=== PATIENT | male | born 1965 | race Caucasian/White ===

== ENCOUNTER 2023-12-12 18:43 | Observation (INO) | payer MEDICARE, MEDICAID, SELFPAY ==
--- NOTE | ~2023-12-12 | XR_ITS ---
XR ribs LT 2V w CXR 2V Ordering provider: Mariana Pinto PA-C History: . rib/chest pain, fall . Comparison: None. FINDINGS: BONES: Fracture of the left fourth rib is noted. No other fractures seen. MEDIASTINUM: The cardiac silhouette is not enlarged. LUNGS: No infiltrates, effusions or pneumothorax. OTHER: No free air under the diaphragm. IMPRESSION: 1. Fracture left fourth rib. 2. No acute cardiopulmonary findings. Reviewed, dictated and finalized at location A.
--- NOTE | ~2023-12-12 | NM_ITS ---
EXAMINATION: NM lung vent and perfusion DATE: 12/13/2023 02:17 INDICATION: Pleuritic chest pain. TECHNIQUE: 15.7 mCi xenon-133 by inhalation and 5.2 mCi Tc-99m MAA by intravenous route. Scintigraph ic images of the chest were obtained. COMPARISON: Chest radiograph dated 12/12/2023 FINDINGS: There is homogeneous radiotracer activity throughout the lungs on the single breath ventilation seque nce. There is relatively homogeneous perfusion throughout the lungs. No discrete ventilation and pe rfusion mismatch is identified. IMPRESSION: 1. Low probability for pulmonary embolism. Reviewed, dictated and finalized at location A.
--- NOTE | ~2023-12-12 | CT_ITS ---
EXAMINATION: CT brain wo con DATE: 12/12/2023 23:03 INDICATION: Fall with head injury TECHNIQUE: Computed tomography (CT) of the head was performed without intravenous contrast. Sagittal and coronal reconstructions were performed. The mA was adjusted according to patient size. Iterative reconstruction technique was employed. The dose-length product was 605.33 mGy-cm. COMPARISON: None FINDINGS: No fracture. No acute intracranial hemorrhage, acute infarction or abnormal extra axial fluid collect ion. Ventricles are normal and symmetric. No mass/mass effect. Consistent with likely benign right pa rietal scalp nodule. The orbits are normal. Mild mucosal thickening at the bilateral frontoethmoidal recesses. Status post left mastoidectomy. IMPRESSION: 1. No fracture or acute intracranial process. Reviewed, dictated and finalized at location A.
--- NOTE | ~2023-12-12 | CT_ITS ---
EXAMINATION: CT abdomen pelvis wo con DATE: 12/12/2023 23:04 INDICATION: Vomiting and dysuria TECHNIQUE: Computed tomography (CT) of the abdomen and pelvis was performed without intravenous contr ast. Automated exposure control and iterative reconstruction technique were employed. The dose-length product was 452.32 mGy-cm. COMPARISON: None FINDINGS: Small calcified granulomata and mild atelectasis at the bilateral lung bases. Heart size is normal. N o pericardial or pleural effusion. There are few low-attenuation hepatic cysts the largest in the lef t hepatic lobe measuring 1.7 cm. Small calcified splenic nodule consistent with old granulomatous dis ease. Gallbladder, pancreas and bilateral adrenal glands are normal. There are bilateral low-attenuat ion renal cysts along with a 1.5 cm exophytic soft tissue density lesion at the lower pole the left k idney most likely proteinaceous/hemorrhagic cyst although differential includes solid renal cell carc inoma. Bowels including the appendix are normal. There is a nonspecific presacral 3.6 x 2.8 cm soft t issue mass centered along the plane of the left levator ani muscle. Bladder is normal. No free intrap eritoneal gas or fluid. No pathologically enlarged abdominal or pelvic lymphadenopathy. IMPRESSION: 1. No acute intra-abdominal/pelvic process. 2. Indeterminate presacral 3.6 x 2.8 cm soft tissue mass centered along the plane of the left levator ani muscle which could be either benign or malignant. Would consider CT-guided biopsy for further ev aluation. 3. Indeterminate 1.5 cm left renal lesion most likely proteinaceous/hemorrhagic cyst although renal c ell carcinoma is not excludable and would recommend further evaluation with follow-up pre and postcon trast CT or MRI. 4. Prostatomegaly. Reviewed, dictated and finalized at location A. IMPRESSION: 1. No acute intra-abdominal/pelvic process. 2. Indeterminate presacral 3.6 x 2.8 cm soft tissue mass centered along the natalia ne of the left levator ani muscle which could be either benign or malignant. Wo uld consider CT-guided biopsy for further evaluation. 3. Indeterminate 1.5 cm left renal lesion most likely proteinaceous/hemorrhagic cyst although renal cell carcinoma is not excludable and would recommend furth er evaluation with follow-up pre and postcontrast CT or MRI. 4. Prostatomegaly.
--- NOTE | 2023-12-12 18:51 | ECG_ITS ---
Test Date: 2023-12-12 18:51:12 Measurements Intervals [place] Rate: 76 P: 36 IL: 164 QRS: -7 QRSD: 106 T: 32 QT: 373 QTc: 422 Interpretive Statements SINUS RHYTHM No previous ECG available for comparison Electronically Signed On 12-13-2023 12:59:22 CDT by Myles Galeano M.D.
[2023-12-12 19:00] VITALS: BP 103/64; PULSE 76; RESP 16; TEMP 36.9; O2SAT 96
[2023-12-12 20:05] VITALS: BP 111/72; PULSE 89; RESP 12; O2SAT 96
[2023-12-12 20:50] VITALS: BP 91/72
[2023-12-12 21:20] VITALS: BP 105/68; PULSE 89; RESP 19; O2SAT 100
[2023-12-12 21:26] LABS: Basophils Absolute Auto 0.1 K/mm3 (0.0-0.1); Basophils Percent Auto 0.6 % (0.2-1.2); Eosinophils Absolute Auto 0.1 K/mm3 (0-0.3); Eosinophils Percent Auto 1.8 % (0-4.4); Hematocrit 37.4 % (42.0-52.0); Hemoglobin 12.3 g/dL (14.0-18.0); Immature Granulocyte Absolute 0.03 K/mm3 (0.00-0.031); Immature Granulocyte Percent A 0.4 % (0-0.5); Lymphocytes Absolute Auto 1.21 K/mm3 (0.9-3.2); Lymphocytes Percent Auto 15.6 % (18.3-44.2); Mean Corpuscular HGB Conc 32.9 g/dl (32-36); Mean Corpuscular Hemoglobin 30.1 pg (26-34); Mean Corpuscular Volume 91.4 fl (80-100); Mean Platelet Volume 8.5 fl (7.4-10.4); Monocytes Absolute Auto 0.7 K/mm3 (0.1-0.6); Neutrophils Absolute Auto 5.7 K/mm3 (1.3-6.7); Neutrophils Percent Auto 72.6 % (45.5-73.1); Platelet Count Result 171 k/mm3 (150-375); Red Blood Count 4.09 M/mm3 (4.6-6.20); Red Cell Distribution Width 14.6 % (11.5-14.5); White Blood Count 7.8 K/mm3 (4.5-10.0)
[2023-12-12 21:36] LABS: Alanine Aminotransferase 12 U/L (6-50); Albumin Level 3.6 g/dL (3.5-5.1); Alkaline Phosphatase 56 U/L (38-126); Anion Gap 9 mmol/L (4-12); Aspartate Amino Transferase 24 U/L (17-59); Bilirubin,Total 0.4 mg/dL (0.2-1.3); Blood Urea Nitrogen 29 mg/dL (9-20); Calcium 8.9 mg/dL (8.4-10.2); Carbon Dioxide 19 mmol/L (22-30); Chloride 108 mmol/L (98-107); Estimated CRCL calculation 30 ml/min; Estimated Glomerular Filt Rate 26; Glucose 128 mg/dL (65-110); Lipase 167 U/L (23-300); Potassium 4.2 mmol/L (3.4-5.0); Sodium 136 mmol/L (137-145)
[2023-12-12 21:40] LABS: Prothrombin Time 13.7 Seconds (11.1-14.7)
[2023-12-12 21:41] LABS: Partial Thromboplastin Time 29.9 Seconds (22.3-36.8)
--- NOTE | 2023-12-12 21:45 | ED.GENADULT ---
HPI - General Adult General Chief complaint: Unspecified Stated complaint: MULTIPLE C/O Time Seen by Provider: 12/12/23 21:10 Source: patient Mode of arrival: ambulatory Limitations: no limitations History of Present Illness HPI narrative: This is a 58-year-old male that presents to the emergency department for evaluation of left-sided chest pain. Ongoing over the last several days. Worse with breathing. Reports he has had nausea and vomiting. He was evaluated at another facility and was able to be discharged. Reports he has been having difficulty urinating. Denies fevers, cough, shortness of breath or diarrhea. Related Data Allergies Allergy/AdvReac Type Severity Reaction Status Date / Time Penicillins Allergy Unknown Verified 12/12/23 20:04 Review of Systems Review of Systems: CONSTITUTIONAL: Denies fever CARDIOVASCULAR: Reports chest pain RESPIRATORY: Denies cough or dyspnea. GASTROINTESTINAL: Reports nausea and vomiting. Denies abdominal pain, or diarrhea. GENITOURINARY: Denies dysuria or hematuria. MUSCULOSKELETAL: Reports back pain, joint pain, and myalgia. NEUROLOGIC: Denies headache, numbness, or weakness. All systems reviewed & are unremarkable except as noted in HPI and below PMFSH Past Medical History Medical History (Updated 12/13/23 @ 01:32 by Mariana Pinto PA-C) History of gastroesophageal reflux (GERD) History of hypertension Social History Social History (Updated 12/12/23 @ 21:50 by Mariana Pinto PA-C) Substance use: never Exam Narrative: GENERAL: Well-appearing, well-nourished, and in no acute distress. HEAD: Normocephalic, atraumatic. EYES: PERRLA and EOMI. ENT: Nares clear, no rhinorrhea or epistaxis. Mucous membranes dry. Oropharynx without tonsillar hypertrophy exudate or other lesions. Bilateral TMs pearly salvador non-bulging NECK: Supple. No adenopathy or masses. No midline spinal tenderness CHEST: Clear to auscultation. No respiratory distress. No wheezes rales or rhonchi HEART: Regular rate and rhythm. No murmur heard. Normal peripheral pulses. ABDOMEN: Soft, nontender, nondistended, normal active bowel sounds. EXTREMITIES: Normal range of motion. No edema. SKIN: Warm, dry, no rash. NEURO: No focal deficits. Alert and oriented x3. Cranial nerves 2-12 grossly intact PSYCH: Normal mood and affect Course Course Emergency Course: Patient updated on workup and recommendation for admission Consultations Consultation #1: spoke with hospitalist about patient and workup who accepts admission Date: 12/13/23 Vital Signs Vital signs: Vital Signs Temperature 98.4 F 12/12/23 19:00 Pulse Rate 76 12/12/23 19:00 Respiratory Rate 16 12/12/23 19:00 Blood Pressure 103/64 12/12/23 19:00 Pulse Oximetry 96 12/12/23 19:00 Temperature 98.4 F 12/12/23 19:00 Pulse Rate 73 12/13/23 01:37 Respiratory Rate 13 12/13/23 01:37 Blood Pressure 103/68 12/13/23 01:37 Pulse Oximetry 99 12/13/23 01:37 Medical Decision Making MDM Narrative Medical decision making narrative: patient presents to the emergency department for left-sided chest pain. Also reporting nausea and vomiting last several days and difficulty urinating. He is afebrile and nontoxic appearing. His vitals are stable. Cbc without leukocytosis. Shows normocytic anemia with hemoglobin of 12.3. Metabolic panel with evidence of dehydration and acute kidney injury. We did not have any previous blood work, the patient reports he does not have any history of kidney problems. Patient was noted to have urinary retention with over 500 in his bladder and still unable to urinate. Hanks catheter placed. UA without evidence of infection. CT abdomen and pelvis without acute findings. Patient reporting a fall with head injury. CT brain without acute findings. Chest x-ray shows a left 4th rib fracture. Baseline and 3 hour troponin are negative. No acute ST changes on EKG. D-dimer Elevated.
[2023-12-12 21:47] LABS: Troponin I < 0.012 ng/mL (0.000-0.034)
[2023-12-12] MEDS: SODIUM CHLORIDE 0.9% IV 1,000 ML 999 ML IV CONT ×2 (21:57→23:49)
[2023-12-12] MEDS: ONDANSETRON INJ 4 MG/2 ML VIAL IV PUSH (21:57)
[2023-12-12] MEDS: ACETAMINOPHEN 500 MG TABLET 1000 MG PO (21:58)
[2023-12-12 22:10] LABS: D Dimer 0.99 ug/mL (<0.48)
[2023-12-12 22:44] VITALS: BP 118/64; PULSE 73; RESP 12; O2SAT 99
--- NOTE | 2023-12-13 00:11 | PC.NURSE ---
Pt attempted multiple times to urinate, unsuccessful. Hanks catheter placed at this time.
[2023-12-13 00:37] LABS: Appearance Urine Cloudy (Clear); Bacteria Urine None Seen /hpf; Bilirubin Urine Negative (Negative); Blood Urine 2+ (Negative); Color Urine Yellow (Yellow); Glucose Urine UA Negative (Negative); Ketones Urine Negative (Negative); Leukocyte Esterase Ur Negative LEU/UL (Negative); Need Manual Microscopic Reviewed; Nitrate Urine Negative (Negative); Protein Urine Trace mg/dL (Negative); Specific Grav Ur 1.027 (1.001-1.035); Squamous Epithelial Cell Urine None Seen /hpf (Few); Urobilinogen Urine 0.2 mg/dL (<2.0); WBC Urine 0-5 /hpf (0-3)
[2023-12-13 00:42] LABS: Add Urine Microscopic? YES
[2023-12-13 00:45] LABS: Troponin I < 0.012 ng/mL (0.000-0.034)
[2023-12-13 01:37] VITALS: BP 103/68; PULSE 73; RESP 13; O2SAT 99
[2023-12-13 02:33] VITALS: BP 122/81; PULSE 78; RESP 20; TEMP 36.6; O2SAT 100; BMI 26.6
[2023-12-13 02:44] VITALS: BMI 26.6
--- NOTE | 2023-12-13 02:49 | ADMGEN ---
This patient, Rubin Edmond, was admitted to [facility] Surg Room 322-01. Patient/family oriented to hospital policies and general routines including ID bracelet, bed and alarms, visiting hours, pain management, procedures, bathroom and other care routines, personal items, smoking policy, room service/diet, and visiting hours. Information on how to activate the Rapid Response Team has been discussed. Patient/Family are encouraged to report perceived risks to care and to ask questions if they do not understand what they are told or what they should do.
[2023-12-13 03:44] LABS: Troponin I < 0.012 ng/mL (0.000-0.034)
[2023-12-13 06:00] VITALS: BP 125/79; PULSE 80; RESP 18; TEMP 36.5; O2SAT 99
[2023-12-13] MEDS: SODIUM CHLORIDE 0.9% IV 1,000 ML 125 ML IV CONT (06:43)
--- NOTE | 2023-12-13 10:25 | PM.IMHP ---
H&P: HPI History of Present Illness Date/Time: 12/13/23 10:25 Chief Complaint: Left-sided chest pain Narrative: This is a 58-year-old male with a significant past medical history of GERD, hypertension who presents to the hospital for evaluation of left-sided chest pain. Patient states he was working out in his shed and was picking up a piece of sheet metal and ended up falling backwards and towards his left side over another piece of sheet metal. Patient endorses left chest pain due to rib fracture, urinary frequency and urgency. Patient denies any fever, chills, nausea, vomiting, diarrhea, abdominal pain, shortness of breath. Workup in the hospital includes a head CT which was negative for fracture or acute intracranial process. Rib with chest x-ray showed fracture of left 4th rib, no acute cardiopulmonary findings. Pulmonary perfusion imaging showed low probability for PE. Abdomen/pelvis CT was negative for any acute inter abdominal/pelvis process, showed an indeterminate pre sacral 3.6 x 2.8 cm soft tissue mass which could be either benign or malignant, indeterminate 1.5 cm left renal lesion most likely cyst although renal cell carcinoma is not excluded, prostatomegaly. Initial labs showed a normal white blood cell count of 7.8, hemoglobin 12.3, D-dimer 0.99, INR 1.0, sodium 136, bicarb 19, BUN 29, creatinine 2.5, EGFR 26, troponin was negative x2, lipase 167. UA was obtained which showed 2+ urine blood, 11-20 urine RBC, otherwise normal. Patient was given IV fluids, Tylenol, Zofran while in the ED. Review of Systems Review of Systems: All systems reviewed & are unremarkable except as noted in HPI and below Constitutional: Constitutional: Reports as per HPI and Reports no additional constitutional complaints Eyes: Eyes: Reports as per HPI and Reports no additional eye complaints ENT: Reports system reviewed and no additional complaints, except as documented and Reports as per HPI Cardiovascular: Cardiovascular: Reports as per HPI and Reports no additional cardiovascular complaints Respiratory: Respiratory: Reports as per HPI and Reports no additional respiratory complaints Gastrointestinal: Gastrointestinal: Reports as per HPI and Reports no additional gastrointestinal complaints Genitourinary: Genitourinary: Reports no additional male genitourinary complaints and Reports as per HPI Musculoskeletal: Musculoskeletal: Reports no additional musculoskeletal complaints and Reports as per HPI Integumentary/Breasts: Skin/Breast: Reports system reviewed and no additional complaints, except as docu and Reports as per HPI Neurologic: Reports system reviewed and no additional complaints, except as documented and Reports as per HPI Psychiatric: Psychiatric: Reports no additional psychiatric complaints and Reports as per HPI [facility] Past Medical History Medical History Biceps tendon rupture BPH (benign prostatic hyperplasia) Chronic back pain History of gastroesophageal reflux (GERD) History of hypertension Hyperlipidemia Hypertension Insomnia Surgical History Surgical History H/O hernia repair H/O repair of rotator cuff History of lumbar surgery Social History Social History Smoking status: Never smoker Alcohol intake: never Substance use: never Do You Feel Safe in your Home?: Yes Lack of Transportation: No Lack of Food: Never True Current Housing: I Have Housing Concerned About Future Housing: No Difficulty Paying Gas/Electric Bills: No Difficulty Paying for Meds: No Currently Unemployed: YES Education: Grade School Difficulty w/ Childcare or Family Care: No Spiritual care concerns: No Meds Home Medications and Allergies Home Medications Medication Instructions Recorded Confirmed Type amitriptyline 100 mg tablet 100 mg
[2023-12-13 10:57] LABS: Basophils Percent Auto 0.5 % (0.2-1.2); Eosinophils Absolute Auto 0.2 K/mm3 (0-0.3); Hematocrit 36.4 % (42.0-52.0); Hemoglobin 11.9 g/dL (14.0-18.0); Immature Granulocyte Absolute 0.02 K/mm3 (0.00-0.031); Immature Granulocyte Percent A 0.3 % (0-0.5); Lymphocytes Percent Auto 25.2 % (18.3-44.2); Mean Corpuscular HGB Conc 32.7 g/dl (32-36); Mean Corpuscular Hemoglobin 30.4 pg (26-34); Mean Corpuscular Volume 93.1 fl (80-100); Mean Platelet Volume 8.8 fl (7.4-10.4); Monocytes Absolute Auto 0.6 K/mm3 (0.1-0.6); Monocytes Percent Auto 10.2 % (2.6-8.5); Neutrophils Absolute Auto 3.6 K/mm3 (1.3-6.7); Neutrophils Percent Auto 60.8 % (45.5-73.1); Platelet Count Result 169 k/mm3 (150-375); Red Blood Count 3.91 M/mm3 (4.6-6.20); Red Cell Distribution Width 14.9 % (11.5-14.5)
[2023-12-13 11:05] LABS: Alanine Aminotransferase 13 U/L (6-50); Albumin Level 3.1 g/dL (3.5-5.1); Alkaline Phosphatase 57 U/L (38-126); Anion Gap 5 mmol/L (4-12); Aspartate Amino Transferase 30 U/L (17-59); Bilirubin,Total 0.4 mg/dL (0.2-1.3); Blood Urea Nitrogen 26 mg/dL (9-20); Calcium 8.5 mg/dL (8.4-10.2); Carbon Dioxide 20 mmol/L (22-30); Chloride 110 mmol/L (98-107); Estimated CRCL calculation 41 ml/min; Estimated Glomerular Filt Rate 39; Glucose 94 mg/dL (65-110); Potassium 4.1 mmol/L (3.4-5.0); Sodium 135 mmol/L (137-145)
[2023-12-13] MEDS: TAMSULOSIN HCL 0.4 MG CAPSULE PO (11:11)
[2023-12-13] MEDS: HYDROcodone/acetaminophen (*CRX) 7.5-325 MG TABLET 1 TAB PO ×2 (11:11→17:36)
[2023-12-13 14:00] VITALS: BP 109/63; PULSE 77; RESP 20; TEMP 36.8; O2SAT 100
[2023-12-13] MEDS: HYDROcodone/acetaminophen (*CRX) 5-325 MG TABLET 0.5 TAB PO (21:32)
[2023-12-13] MEDS: AMITRIPTYLINE HCL 25 MG TABLET 100 MG PO (21:32)
[2023-12-13] MEDS: traZODone HCL 50 MG TABLET PO (21:41)
[2023-12-13 21:56] VITALS: BP 136/78; PULSE 79; RESP 18; TEMP 36.7; O2SAT 99
[2023-12-14] MEDS: HYDROcodone/acetaminophen (*CRX) 7.5-325 MG TABLET 1 TAB PO ×3 (05:44→17:01)
[2023-12-14 05:56] VITALS: BP 135/83; PULSE 102; RESP 20; TEMP 37.1; O2SAT 99
[2023-12-14 06:18] LABS: Basophils Percent Auto 0.5 % (0.2-1.2); Eosinophils Absolute Auto 0.2 K/mm3 (0-0.3); Eosinophils Percent Auto 3.4 % (0-4.4); Hemoglobin 13.2 g/dL (14.0-18.0); Immature Granulocyte Absolute 0.03 K/mm3 (0.00-0.031); Immature Granulocyte Percent A 0.5 % (0-0.5); Lymphocytes Absolute Auto 1.35 K/mm3 (0.9-3.2); Lymphocytes Percent Auto 23.2 % (18.3-44.2); Mean Corpuscular Hemoglobin 29.8 pg (26-34); Mean Corpuscular Volume 90.3 fl (80-100); Mean Platelet Volume 8.4 fl (7.4-10.4); Monocytes Absolute Auto 0.5 K/mm3 (0.1-0.6); Monocytes Percent Auto 8.2 % (2.6-8.5); Neutrophils Absolute Auto 3.7 K/mm3 (1.3-6.7); Neutrophils Percent Auto 64.2 % (45.5-73.1); Platelet Count Result 184 k/mm3 (150-375); Red Blood Count 4.43 M/mm3 (4.6-6.20); Red Cell Distribution Width 14.6 % (11.5-14.5); White Blood Count 5.8 K/mm3 (4.5-10.0)
[2023-12-14 06:30] LABS: Chloride 110 mmol/L (98-107)
[2023-12-14 06:42] LABS: Alanine Aminotransferase 13 U/L (6-50); Albumin Level 3.6 g/dL (3.5-5.1); Alkaline Phosphatase 67 U/L (38-126); Anion Gap 4 mmol/L (4-12); Aspartate Amino Transferase 26 U/L (17-59); Bilirubin,Total 0.7 mg/dL (0.2-1.3); Blood Urea Nitrogen 13 mg/dL (9-20); Calcium 8.8 mg/dL (8.4-10.2); Carbon Dioxide 22 mmol/L (22-30); Estimated CRCL calculation 72 ml/min; Estimated Glomerular Filt Rate > 60; Glucose 90 mg/dL (65-110); Potassium 4.2 mmol/L (3.4-5.0); Sodium 136 mmol/L (137-145)
[2023-12-14 08:00] VITALS: PULSE 102; RESP 20; O2SAT 99
[2023-12-14] MEDS: TAMSULOSIN HCL 0.4 MG CAPSULE PO (09:18)
[2023-12-14] MEDS: ENOXAPARIN 40 MG/0.4 ML SYRINGE SUB-Q (09:18)
[2023-12-14] MEDS: PANTOPRAZOLE 40 MG TABLET PO (09:18)
[2023-12-14 14:00] VITALS: BP 129/84; PULSE 90; RESP 18; TEMP 36.6; O2SAT 98
--- NOTE | 2023-12-14 17:24 | PM.DS ---
DS: Admitting Diagnosis Discharge Date 12/14/23 Admitting Diagnosis Acute kidney injury Acute urinary retention Rib fracture History of hypertension Insomnia Chronic back pain BPH DS: Discharge Diagnosis Discharge Diagnosis (1) Acute kidney injury: Code(s): N17.9 - Acute kidney failure, unspecified Status: Acute (2) Acute urinary retention: Code(s): R33.8 - Other retention of urine Status: Acute (3) Fracture, rib: Qualifiers: Encounter type: initial encounter Fracture type: closed Laterality: left Rib fracture type: single rib Qualified Code(s): S22.32XA - Fracture of one rib, left side, initial encounter for closed fracture Code(s): S22.39XA - Fracture of one rib, unspecified side, initial encounter for closed fracture Status: Acute (4) History of hypertension: Code(s): Z86.79 - Personal history of other diseases of the circulatory system Status: Acute (5) History of gastroesophageal reflux (GERD): Code(s): Z87.19 - Personal history of other diseases of the digestive system Status: Chronic (6) Insomnia: Code(s): G47.00 - Insomnia, unspecified Status: Acute (7) Chronic back pain: Code(s): M54.9 - Dorsalgia, unspecified; G89.29 - Other chronic pain Status: Acute (8) BPH (benign prostatic hyperplasia): Code(s): N40.0 - Benign prostatic hyperplasia without lower urinary tract symptoms Status: Acute DS: Summary Hospital Course Reason for hospitalization: Acute kidney injury Acute urinary retention Rib fracture History of hypertension Insomnia Chronic back pain BPH Hospital Course: This is a 58-year-old male with a significant past medical history of GERD, hypertension who presents to the hospital for evaluation of left-sided chest pain. Patient states he was working out in his shed and was picking up a piece of sheet metal and ended up falling backwards and towards his left side over another piece of sheet metal. Patient endorses left chest pain due to rib fracture, urinary frequency and urgency. Patient denies any fever, chills, nausea, vomiting, diarrhea, abdominal pain, shortness of breath. Workup in the hospital includes a head CT which was negative for fracture or acute intracranial process. Rib with chest x-ray showed fracture of left 4th rib, no acute cardiopulmonary findings. Pulmonary perfusion imaging showed low probability for PE. Abdomen/pelvis CT was negative for any acute inter abdominal/pelvis process, showed an indeterminate pre sacral 3.6 x 2.8 cm soft tissue mass which could be either benign or malignant, indeterminate 1.5 cm left renal lesion most likely cyst although renal cell carcinoma is not excluded, prostatomegaly. Initial labs showed a normal white blood cell count of 7.8, hemoglobin 12.3, D-dimer 0.99, INR 1.0, sodium 136, bicarb 19, BUN 29, creatinine 2.5, EGFR 26, troponin was negative x2, lipase 167. UA was obtained which showed 2+ urine blood, 11-20 urine RBC, otherwise normal. Patient was given IV fluids, Tylenol, Zofran while in the ED. 12/14/23: Patient denies any new complaints today. Hemoglobin 13.2, creatinine back down to 1.0, EGFR 60. His acute kidney injury is now resolved. Hanks catheter was discontinued. He he was able to void without any difficulty. He will need to follow up with a urologist on an outpatient basis for his BPH and retention. He will also need to follow up with his primary care physician in 1 week. He was given a prescription for Flomax. Final diagnosis: Acute kidney injury, acute urinary retention, rib fracture, BPH Status at Discharge Cognitive/behavioral status at discharge: Alert oriented x4 Functional status at discharge: independent ambulation Overall status at discharge: patient is progressing back to baseline Time Spent with Patient Time attestation: Total time spent providing and/or coordinating discharge services: Time spent: Benigno
--- NOTE | 2023-12-14 17:32 | PC.NURSE ---
PVR checked per bladder scan with 0 results.
== END 2023-12-14 18:53 | disposition home or self-care (01) ==
LOC: ANHED 12-13 01:36 → ANH3MEDSUR 12-13 02:23
PROVIDERS: Admitting Provider Internal Medicine; Emergency Provider Physician Assistant; Visit Provider Nurse Practitioner Acute Care
DX: N17.9 Acute kidney failure, unspecified (principal); R33.9 Retention of urine, unspecified; S22.32XA Fracture of one rib, left side, initial encounter for closed fracture; W01.0XXA Fall on same level from slipping, tripping and stumbling without subsequent striking against object, initial encounter; I10 Essential (primary) hypertension; K21.9 Gastro-esophageal reflux disease without esophagitis; N40.0 Benign prostatic hyperplasia without lower urinary tract symptoms; E78.5 Hyperlipidemia, unspecified; G47.00 Insomnia, unspecified; M54.9 Dorsalgia, unspecified; G89.29 Other chronic pain
CPT/HCPCS: 36415; 70450; 71046; 71100; 74176; 78582; 80053; 81001; 83690; 84484; 85025; 85380; 85610; 85730; 93005; 96361; 96372; 96374; 99285; A9270; A9540; A9558; G0378; J1650; J2405; J7030